=== PATIENT | female | born 1990 | race African-American/Black ===

== ENCOUNTER 2020-05-08 20:03 | Emergency (ER) | payer MEDICAID, OTHER ==
[~2020-05-08] VITALS: Ht 175.3 cm; Wt 52.9 kg
[2020-05-08 20:52] VITALS: BP 114/81
[2020-05-08] MEDS ORDERED: ACETAMINOPHEN 325MG TABLET PO ONE (21:15)
== END 2020-05-08 23:10 | disposition home or self-care (01) ==
LOC: ER 20:03
DX: S16.1XXA Strain of muscle, fascia and tendon at neck level, initial encounter (principal); T74.11XA Adult physical abuse, confirmed, initial encounter; F17.200 Nicotine dependence, unspecified, uncomplicated; Y08.89XA Assault by other specified means, initial encounter; Y93.89 Activity, other specified; Y92.9 Unspecified place or not applicable; Z88.6 Allergy status to analgesic agent
CPT/HCPCS: 81025; 99284

== ENCOUNTER 2020-08-21 15:33 | Emergency (ER) | payer OTHER ==
[~2020-08-21] VITALS: Ht 175.3 cm; Wt 70.0 kg
[2020-08-21 15:37] VITALS: BP 107/67
[2020-08-21] MEDS ORDERED: ACETAMINOPHEN 325MG TABLET PO ONE (16:30)
== END 2020-08-21 18:10 | disposition home or self-care (01) ==
LOC: ER 15:33
DX: M54.2 Cervicalgia (principal); Y08.89XA Assault by other specified means, initial encounter; Y93.9 Activity, unspecified; Y92.9 Unspecified place or not applicable; Z88.6 Allergy status to analgesic agent
CPT/HCPCS: 72040; 81025; 99283; Z7610

== ENCOUNTER 2021-11-30 10:08 | Emergency (ER) | payer MEDICAID, OTHER ==
[~2021-11-30] VITALS: Ht 175.3 cm; Wt 71.0 kg
[2021-11-30] MEDS ORDERED: HYDROCODONE/ACETAMINOPHEN 5/325MG TABLET PO ONE (10:45)
[2021-11-30] MEDS ORDERED: METHOCARBAMOL 500MG TABLET PO ONE (10:45)
[2021-11-30] MEDS ORDERED: METHOCARBAMOL 500MG TABLET PO SCH (12:45)
[2021-11-30] MEDS ORDERED: ACET-2708 MT (12:52)
[2021-11-30] MEDS ORDERED: METH-773 MT (12:52)
[2021-11-30] MEDS ORDERED: LIDO1ADH5 TP (12:52)
[2021-11-30 13:20] VITALS: BP 123/81
== END 2021-11-30 13:20 | disposition home or self-care (01) ==
LOC: ER 10:08
DX: S16.1XXA Strain of muscle, fascia and tendon at neck level, initial encounter (principal); M25.511 Pain in right shoulder; Z85.3 Personal history of malignant neoplasm of breast; Z90.11 Acquired absence of right breast and nipple; Z88.6 Allergy status to analgesic agent; V43.52XA Car driver injured in collision with other type car in traffic accident, initial encounter; W22.11XA Striking against or struck by driver side automobile airbag, initial encounter; Y93.89 Activity, other specified; Y92.488 Other paved roadways as the place of occurrence of the external cause
CPT/HCPCS: 73030; 81025; 99283

== ENCOUNTER 2024-11-13 22:39 | Emergency (ER) | payer MEDICAID ==
[~2024-11-13] VITALS: Ht 175.3 cm; Wt 72.7 kg
[2024-11-13] MEDS: DEXAMETHASONE 10 MG/ML VIAL IM ONE (00:52)
[2024-11-13] MEDS: FAMOTIDINE 20MG TABLET PO ONE (00:53)
[~2024-11-13 22:39] MED LIST: ACET-2708 MT; LIDO1ADH5 TP; METH-773 MT
[2024-11-13 22:44] VITALS: O2SAT 100
[2024-11-14] MEDS ORDERED: HYDR28CR97 TP (01:23)
[2024-11-14 01:48] VITALS: BP 108/74; PULSE 60; RESP 16; TEMP 36.5; O2SAT 98
== END 2024-11-14 01:51 | disposition home or self-care (01) ==
LOC: ER 22:39
DX: T78.40XA Allergy, unspecified, initial encounter (principal); Z79.52 Long term (current) use of systemic steroids; Z79.899 Other long term (current) drug therapy; Z88.6 Allergy status to analgesic agent; Y92.89 Other specified places as the place of occurrence of the external cause
CPT/HCPCS: 96372; 99283; J1100; Z7610